=== PATIENT | female | born 1960 | race Caucasian/White ===

== ENCOUNTER 2018-06-18 23:30 | Emergency (ER) | payer OTHER ==
[2018-06-18 23:37] VITALS: BMI 25.4
[2018-06-18 23:40] VITALS: RESP 18
--- NOTE | 2018-06-18 23:48 | ED PDOC ---
Arrival/HPI - General Chief Complaint: Trauma Time Seen by Provider: 06/18/18 23:37 Historian: Patient - History of Present Illness Narrative History of Present Illness (Text): 06/18/18 23:45 58 year old female pmhx of asthma and bilateral knee replacement presents to the ED with headache, left-sided chest pain, and left-sided back pain s/p fall down the stairs. Patient reports she stepped back and fall backwards down 12 flight of steps hitting her head on the door. Patient notes the left-sided chest pain is present with deep breaths. Patient denies being on blood thinner medication. Patient denies any LOC, shortness of breath, nausea, vomiting, neck pain, dizziness, or any other complaints. PMD: Dr. Roberto Time/Duration: Prior to Arrival (30 minutes) Symptom Onset: Sudden Symptom Course: Unchanged Activities at Onset: Light Context: Tripped Past Medical History - Provider Review Nursing Documentation Reviewed: Yes - Pulmonary Hx Asthma: Yes - Psychiatric Hx Substance Use: No - Surgical History Hx Joint Replacement: Yes (b/l knee 1 year ago) Hx Orthopedic Surgery: Yes - Anesthesia Hx Anesthesia: Yes Family/Social History - Physician Review Nursing Documentation Reviewed: Yes Family/Social History: No Known Family HX Smoking Status: Unknown If Ever Smoked Hx Alcohol Use: No Hx Substance Use: No Allergies/Home Meds Allergies/Adverse Reactions: Allergies No Known Allergies Allergy (Verified 06/18/18 23:36) Review of Systems - Physician Review All systems were reviewed & negative as marked: Yes - Review of Systems Constitutional: absent: Fevers Respiratory: absent: SOB Cardiovascular: Chest Pain Gastrointestinal: absent: Diarrhea, Nausea, Vomiting Musculoskeletal: Back Pain. absent: Neck Pain Neurological: Headache. absent: Other (LOC) Physical Exam - Physical Exam Narrative Physical Exam (Text): Gen: VS reviewed, alert, well developed, well nourished, nontoxic, mild distress. ENT: normal pharynx. Eye: EOMI, PERRL. Neck: no JVD, supple, no adenopathy. CV: regular rate, regular rhythm, no rubs, no murmur, no gallops, S1, S2, pulses equal and strong. Chest/Pulm: Tenderness to the left lateral ribcage. no distress, clear to auscultation, no wheeze, no rhonchi, breath sounds equal, no rales. Abd: soft, nontender, no guarding, no rebound, no rigidity, normal bowel sounds. Ext: no edema. Skin: good color, no rash, no cyanosis. Psych: responds appropriately to questions, normal affect. Neuro: oriented x 3, CN2-12 intact grossly, motor intact, sensation intact. Vital Signs Reviewed: Yes Vital Signs Pulse Resp BP Pulse Ox 06/18/18 23:31 97 H 18 183/101 H 97 Blood Pressure: Hypertensive Pulse: Tachycardic Respiratory Rate: Normal Medical Decision Making ED Course and Treatment: 06/18/18 23:45 Impression: 58 year old female presetns complaining of headache, left-sided chest pain with respiration, and left-sided back pain s/p falling backwards down a flight of stairs. Plan: -- Head CT -- Lidoderm, Tylenol -- Ribs Left & PA Chest X-ray -- Reassess and disposition Progress Notes: 06/19/18 03:01 patient seen for head injury and left rib injury after accidental slip and fall down stairs. ct cervical spine cleared clinically nexus criteria-patient was able to focus her attention to exclude cervical spine injury. there was no extremity or hip pain/tenderness to warrant xray. patient discharged in stable condition. patient is aware of pendinf xray overread from radiologist and she will personally follow up on results. - RAD Interpretation Narrative RAD Interpretations (Text): EXAM: CT Head without Intravenous Contrast. Electronically signed on Jun 19, 2018 2:48:50 AM EST by: Arnie Loredo M.D IMPRESSION: No acute intracranial abnormality. 06/19/18 03:03 xr ribs my read: no fracture, no ptx Nutrition Therapist: ED Physician, Radiologist - Scribe Statement The provider has reviewed the documentation as recorded by the Michael Torres Provider Scribe Attestation: All medical record entries made by the Pallaviibedi were at my direction and personally dictated by me. I have reviewed the chart and agree that the record accurately reflects my personal performance of the history, physical exam, medical decision making, and the department course for this patient. I have also personally directed, reviewed, and agree with the discharge instructions and disposition. Disposition/Present on Arrival - Present on Arrival Any Indicators Present on Arrival: No History of DVT/PE: No History of Uncontrolled Diabetes: No Urinary Catheter: No History of Decub. Ulcer: No History Surgical Site Infection Following: None - Disposition Have Diagnosis and Disposition been Completed?: Yes Diagnosis: Head injury, Rib contusion, Accidental fall Disposition: HOME/ ROUTINE Disposition Time: 03:04 Patient Plan: Discharge Condition: STABLE Discharge Instructions (ExitCare): Minor Head Injury (DC), Bruised Rib (DC) Additional Instructions: Return for any new or worsening symptoms. Follow up with your primary care doctor. LUCIUS WILL, thank you for letting us take care of you today. Your provider was Dr. Cisco Dudley and you were treated for head injury and rib injury. The emergency medical care you received today was directed at your acute symptoms. If you were prescribed any medication, please fill it and take as directed. It may take several days for your symptoms to resolve. Return to the Emergency Department if your symptoms worsen, do not improve, or if you have any other problems. Please contact your doctor or call one of the physicians/clinics you have been referred to that are listed on the Patient Visit Information form that is included in your discharge packet. Bring any paperwork you were given at discharge with you along with any medications you are taking to your follow up visit. Our treatment cannot replace ongoing medical care by a primary care provider outside of the emergency department. Thank you for allowing the [facility] team to be part of your care today. If you had an X-Ray or CT scan: A Radiologist will review the ED reading if any change in treatment is needed we will contact you. If you had a blood, urine, or wound culture: It will take several days for the results, if any change in treatment is needed we will contact you. If you had an STI test: It will take 48 hours for the results. Please call after 1 week if you have not heard back. Prescriptions: Ibuprofen [Motrin Tab] 600 mg PO QID #42 tab Lidocaine 5% [Lidoderm] 1 ea TD Q12H #14 patch oxyCODONE/Acetaminophen [Percocet 5/325 mg Tab] 1 ea PO QID 2 Days #8 tab Sennosides/Docusate Sodium [Dok Plus Tablet] 2 each PO BID PRN 7 Days #14 tablet PRN Reason: Constipation [facility] - Follow up with primary Forms: [employer] (U[place])
[2018-06-18] MEDS ORDERED: Lidocaine 5% Patch TD STA (23:49)
[2018-06-19 03:03] VITALS: BP 178/80; PULSE 90; TEMP 98; O2SAT 96
--- NOTE | 2018-06-19 09:47 | CT ---
Date of service: 06/19/2018 PROCEDURE: CT HEAD WITHOUT CONTRAST. HISTORY: trauma COMPARISON: None available. TECHNIQUE: Axial computed tomography images were obtained through the head/brain without intravenous contrast. Supplemental Coronal and Sagittal projections created and reviewed. Radiation dose: Total exam DLP = 889.91 mGy-cm. This CT exam was performed using one or more of the following dose reduction techniques: Automated exposure control, adjustment of the mA and/or kV according to patient size, and/or use of iterative reconstruction technique. FINDINGS: HEMORRHAGE: No intracranial hemorrhage. BRAIN: No mass effect or edema. No atrophy or chronic microvascular ischemic changes. VENTRICLES: Unremarkable. No hydrocephalus. CALVARIUM: Unremarkable. PARANASAL SINUSES: Unremarkable as visualized. No significant inflammatory changes. MASTOID AIR CELLS: Unremarkable as visualized. No inflammatory changes. OTHER FINDINGS: None. IMPRESSION: No acute intracranial abnormalities. No significant findings to account for the clinical presentation. Concordant results (preliminary interpretation) provided by [employer]. Procedure Completed: 01:34. Preliminary Report: Dictated and Authenticated: 02:48. Final Interpretation: 09:43. June 19, 2018
--- NOTE | 2018-06-19 09:54 | RAD ---
Date of service: 06/19/2018 PROCEDURE: Radiographs of the Chest and Left Ribs. HISTORY: injury COMPARISON: None available. TECHNIQUE: Frontal radiograph of the chest and multiple oblique radiographs of the left ribs were obtained. FINDINGS: LEFT RIBS: No fracture or focal lesion visualized. LUNGS: Clear. PLEURA: No pneumothorax or pleural fluid. CARDIOVASCULAR: Normal cardiac size. No pulmonary vascular congestion. No aortic atherosclerotic calcification present OTHER FINDINGS: None. IMPRESSION: Unremarkable radiographs of the chest and left ribs. No left rib fracture.
== END 2018-06-19 03:04 | disposition home or self-care (01) ==
LOC: ED 23:30
DX: S09.90XA Unspecified injury of head, initial encounter (principal); S20.219A Contusion of unspecified front wall of thorax, initial encounter; W10.9XXA Fall (on) (from) unspecified stairs and steps, initial encounter; Z96.653 Presence of artificial knee joint, bilateral